=== PATIENT | female | born 2000 | race Caucasian/White ===

== ENCOUNTER 2022-02-25 15:30 | Outpatient (CLI) | payer BC, SELFPAY ==
--- OUTSIDE RECORDS SUMMARY | 2022-02-25 15:34 | XMS_ITS | Clinical Summary ---
:2000 Author Organization [facility] Address [place] [address] Care Team Providers Name Role Phone Qian Monique MD Primary Care Provider [phone] Allergies Active Allergy Reactions Severity Noted Date Comments [place] Oil 04/01/2010 Medications Medication Sig Dispensed Refills Start Date End Date Status EPINEPHrine Inject 0.3 mg 2 Each 2 02/19/2022 Act jes (EPIPEN) 0.3 intramuscular. mg/0.3 mL Use as auto-injectorIndi directed cations: Food allergy EPINEPHrine Inject 0.3 mg 2 Each 2 01/03/2018 Dis continued (EPIPEN) 0.3 intramuscular. 2 (R eorder mg/0.3 mL Use as (E-cancel not injectionIndicati directed se nt)) ons: Food allergy meloxicam (MOBIC) Take 1 tablet 30 Tablet 0 11/28/2021 02 Discontinued 7.5 mg (with food) as 2 (*Pat ient states tabletIndications needed for n o longer : Contusion of pain. Maximum t aking/Not on right hip, dose per day: sendi ng facility initial 2 doses. Ok to list) encounter, Acute alternate with buttock pain, tylenol. Injury of right hip, initial encounter Hospital, Clinic, or Other Ordered Dose Route Frequency Start Date End Date Status Facility Administered Medication etonogestrel subdermal 1 Each Sdrm Q 3 YEARS 09/25/2020 Active implant (NEXPLANON) 1 EachIndications: Encounter for removal and reinsertion of Nexplanon Active Problems Problem Noted Date Body mass index (BMI) 40.0-44.9, adult 04/13/[address] 06/15/2018 Overview: Left arm placed 06/14/18 Acne vulgaris 08/18/2011 Adverse food reaction 12/01/2010 Encounters Date Type Specialty Care Team Description 02/19/2022 Office Visit Qian Monique Form (Facebook); MD Yue Contraception (Remove/replace nexplanon, nexplanon will while in [place]. ); Physical; Ginger hidalgo (Going to [facility] with the [facility]) 02/19/2022 Travel 11/28/2021 Ancillary Procedure 11/28/2021 Office Visit Louis Fallon, Pain (Some hip and lower MD back pain. Had an injury about 2 weeks a go while tubing and had hit her right side on a rock./Using Ibu profen for pain management ) 11/28/2021 Travel from Last 3 Months Immunizations Name Administration Dates Next Due AMB Influenza, IIV4 PF (=>6 mos 01/09/2016 Flulaval,Fluzone Fluarix)(Flu Clinic Only) DTaP 09/08/2005, 03/13/2002, 03/29/2001, 01/10/2001, 2000 HIB-HepB (Comvax) 09/19/2001, 01/10/2001, 2000 Hepatitis A (Peds) 08/18/2011, 2009 Human Papilloma Virus Vaccine 04/13/2013, 12/12/2012, 2012 Inactivated Polio Vaccine 09/08/2005, 03/14/2002, 03/13/2002 , 03/29/2001, 01/12/2001 Influenza, IIV4 12/25/2021, 11/22/2019, 04/07/2019, 01/03/2018 MMR 09/08/2005, 12/12/2001 Meningococcal Vaccine (Menveo) 09/29/2016, 10/10/2012 Pneumococcal conj 7-Valent (Prevnar 7) 12/12/2001, 2, 03/29/2001, 2000 Tdap 02/19/2022, 10/10/2012 Typhoid (injectable) 02/19/2022 Varicella Vaccine 2009, 09/19/2001 Yellow Fever 02/19/2022 Family History Medical History Relation Name Comments Good Health Brother Good Health Father Good Health Mother Good Health Sister Relation Name Status Comments Brother Father Mother Sister Social History Tobacco Use Types Packs/Day Years Used Date Smoking Tobacco: Never Smokeless Tobacco: Never Tobacco Cessation: Counseling Given: Yes Alcohol Use Standard Drinks/Week Comments Not Currently 0 (1 standard drink = 0.6 oz pure alcoho l) occasionally Alcohol Habits Answer Date Recorded How often do you have a drink containing alcohol? Never 04/07/2019 How many drinks containing alcohol do you have on a 1 or 2 04/07/2019 typical day when you are drinking? How often do you have six or more drinks on one Less than mo nthly 04/07/2019 occasion? Sex Assigned at Date Recorded Not on file COVID-19 Exposure Response Date Recorded In the last 10 days, have you been in contact with No / Unsu re 02/19/2022 9:26 AM PROCESSING INSPECTOR someone who was confirmed or suspected to have Coronavirus/COVID-19? Obstetrics History Para Term AB IAB SAB Ectopic Multiple Living Live Births 0 0 0 0 0 0 0 0 0 0 0 Last Filed Vital Signs Vital Sign Reading Time Taken Comments Blood Pressure 116/79 02/19/2022 9:39 AM PROCESSING INSPECTOR Pulse 88 02/19/2022 9:39 AM PROCESSING INSPECTOR Temperature 38 ??C (100.4 ??F) 10/21/2019 11:41 AM CDT Respiratory Rate 18 11/28/2021 11:01 AM CDT Oxygen Saturation 95% 02/19/2022 9:39 AM PROCESSING INSPECTOR Inhaled Oxygen Concentration - - Weight 120.1 kg (264 lb 12.8 oz) 02/19/2022 9:39 AM PROCESSING INSPECTOR Height 165.1 cm (5' 5) 02/19/2022 9:39 AM PROCESSING INSPECTOR Body Mass Index 44.07 02/19/2022 9:39 AM PROCESSING INSPECTOR Plan of Treatment Health Maintenance Due Date Last Done Comments Chlamydia for age 16-24 01/26/2020 01/25/2019 (Completed ou dhara of Cerephexian), 01/03/2018 Pap test for age 21-65 09/07/2021 BMI (ht and wt on same day) for 02/19/2023 02/19/2022, 09/12, age 18+ 11/22/2019, Additional history exists Depression screening for age 12+ 02/19/2023 02/19/2022, , 04/07/2019, Additional history exists Tetanus booster 02/20/2032 02/19/2022, 10/10/2012 HPV series for age 9-26 Completed 04/13/2013, 12/12/2012, 12/12/2012, Additional history exists Meningococcal series for age 11-21 Completed 09/29/2016, 0 10/10/2012 COVID-19 vaccine series Completed 12/25/2021, 07/16/2020, 06/25/2020 Influenza for age 9-49 Completed 12/25/2021, 11/22/2019, 04/07/2019, Additional history exists HIV for age 15-65 Completed 02/19/2022 Hepatitis C screening for age Completed 02/19/2022 18-79 Tdap Completed 02/19/2022, 10/10/2012 Procedures Procedure Name Priority Date/Time Associated Diagnosis Comme nts QFT MITOGEN Routine 02/19/2022 11:10 Screening examination Re sults for this PERFORMABLE AM PROCESSING INSPECTOR for pulmonary procedure are in tuberculosis the results section. QFT TB2 PERFORMABLE Routine 02/19/2022 11:10 Screening examina tion Results for this AM PROCESSING INSPECTOR for pulmonary procedure are in tuberculosis the results section. QFT TB1 PERFORMABLE Routine 02/19/2022 11:10 Screening examina tion Results for this AM PROCESSING INSPECTOR for pulmonary procedure are in tuberculosis the results section. QUANTIFERON TB GOLD Routine 02/19/2022 11:10 Screening examina tion Results for this PLUS AM PROCESSING INSPECTOR for pulmonary procedure are in tuberculosis the results section. CBC WITH AUTO Routine 02/19/2022 11:10 Routine general medical Results for this DIFFERENTIAL AM PROCESSING INSPECTOR [facility] are in care facility the results section. QUANTIFERON TB GOLD Routine 02/19/2022 11:10 Screening examina tion Results for this PLUS AM PROCESSING INSPECTOR for pulmonary procedure are in tuberculosis the results section. HEMOGLOBIN A1C Routine 02/19/2022 11:10 Routine general medica l Results for this AM PROCESSING INSPECTOR examination at [facility] hospital are in care facility the results section. LIPID PANEL Routine 02/19/2022 11:10 Routine general medical Results for this AM PROCESSING INSPECTOR examination at [facility] hospital are in care facility the results section. TSH WITH REFLEX Routine 02/19/2022 11:10 Routine general medic al Results for this AM PROCESSING INSPECTOR examination at [facility] are in care facility the results section. GLUCOSE 6-PHOSPHATE Routine 02/19/2022 11:10 Routine general m edical Results for this DEHYDROGENASE G6PD AM PROCESSING INSPECTOR examination at [facility] are in QUANT BLD care facility the results section. COMP METABOLIC PANEL Routine 02/19/2022 11:10 Routine general medical Results for this AM PROCESSING INSPECTOR examination at our community hospital are in care facility the results section. TREPONEMA PALLIDUM Routine 02/19/2022 11:10 Routine screening for Results for this AM PROCESSING INSPECTOR STI (sexually procedure are in transmitted infection) the r esults section. ANTI HCV Routine 02/19/2022 11:10 Routine screening for Re sults for this AM PROCESSING INSPECTOR STI (sexually procedure are in transmitted infection) the r esults section. HBSAG (HBS) Routine 02/19/2022 11:10 Routine screening for Re sults for this AM PROCESSING INSPECTOR STI (sexually procedure are in transmitted infection) the r esults section. ANTI HBS QUANT AHS Routine 02/19/2022 11:10 Routine screening for Results for this AM PROCESSING INSPECTOR STI (sexually procedure are in transmitted infection) the r esults section. CBC WITH AUTO Routine 02/19/2022 11:10 Routine general medical Results for this DIFFERENTIAL AM PROCESSING INSPECTOR examination at [facility] hospital are in care facility the results section. ANTI HIV 1/2 Routine 02/19/2022 11:10 Screening for HIV Result s for this AM PROCESSING INSPECTOR (human immunodeficiency proc edure are in virus) the results section. XR HIP 1 VIEW W STAT 11/28/2021 11:38 Contusion of right hi p, Results for this PELVIS RIGHT AM CDT initial encounte r procedure are in Injury of right hip, the res ults initial encounter section. from Last 3 Months Results QFT MITOGEN PERFORMABLE (02/19/2022 11:10 AM PROCESSING INSPECTOR) P athologist Signature MITOGEN 10.00 IU/mL 02/21/2022 [facility] 11:38 AM PROCESSING INSPECTOR LABORATORY-CENTR AL LABORATORY Specimen Anatomical Collection Method / Collection Time Recei christianne Time (Source) Location / Volume Laterality Blood BLOOD SPECIMEN / Venipuncture / 02/19/2022 11:10 02/19 Unknown Unknown AM PROCESSING INSPECTOR 11:13 AM PROCESSING INSPECTOR Qian Monique MD CHEMISTRY Performing Organization Address City/[facility]/ZIP Code Phon e Number [facility] [address] [place] [address] LABORATORY-CENTRAL 2000 LABORATORY QFT TB2 PERFORMABLE (02/19/2022 11:10 AM PROCESSING INSPECTOR) P athologist Signature TB2 0.01 IU/mL 02/21/2022 [facility] 11:38 AM PROCESSING INSPECTOR LABORATORY-CENTR AL LABORATORY Specimen Anatomical Collection Method / Collection Time Recei christianne Time (Source) Location / Volume Laterality Blood BLOOD SPECIMEN / Venipuncture / 02/19/2022 11:10 02/19 Unknown Unknown AM PROCESSING INSPECTOR 11:13 AM PROCESSING INSPECTOR Qian Monique MD CHEMISTRY Performing Organization Address City/[facility]/ZIP Code Phon e Number [facility] [address] [place] [address] LABORATORY-CENTRAL 2000 LABORATORY QFT TB1 PERFORMABLE (02/19/2022 11:10 AM PROCESSING INSPECTOR) P athologist Signature TB1 0.01 IU/mL 02/21/2022 [facility] 11:50 AM PROCESSING INSPECTOR LABORATORY-CENTR AL LABORATORY Specimen Anatomical Collection Method / Collection Time Recei christianne Time (Source) Location / Volume Laterality Blood BLOOD SPECIMEN / Venipuncture / 02/19/2022 11:10 02/19 Unknown Unknown AM PROCESSING INSPECTOR 11:13 AM PROCESSING INSPECTOR Qian Monique MD CHEMISTRY Performing Organization Address City/State/ZIP Code Phon e Number [facility] [address] [place] [address] LABORATORY-CENTRAL 2000 LABORATORY QUANTIFERON TB GOLD PLUS (02/19/2022 11:10 AM PROCESSING INSPECTOR) [facility] Method Time Signature QFTP NIL 0.01 02/21/2022 [facility] 3:09 PM PROCESSING INSPECTOR LABORATORY-CE NTRAL LABORATORY TB1 0.01 IU/mL 02/21/2022 [facility] 3:09 PM PROCESSING INSPECTOR LABORATORY-CE NTRAL LABORATORY TB2 0.01 IU/mL 02/21/2022 [facility] 3:09 PM PROCESSING INSPECTOR LABORATORY-CE NTRAL LABORATORY MITOGEN 10.00 IU/mL 02/21/2022 [facility] 3:09 PM PROCESSING INSPECTOR LABORATORY-CE NTRAL LABORATORY QFTP TB AG1 - NIL 0.00 02/21/2022 [facility] 3:09 PM PROCESSING INSPECTOR LABORATORY-CE NTRAL LABORATORY TB1-NIL % OF NIL 0 % 02/21/2022 [facility] 3:09 PM PROCESSING INSPECTOR LABORATORY-CE NTRAL LABORATORY QFTP TB AG2 - NIL 0.00 02/21/2022 [facility] 3:09 PM PROCESSING INSPECTOR LABORATORY-CE NTRAL LABORATORY TB2-NIL % OF NIL 0 % 02/21/2022 [facility] 3:09 PM PROCESSING INSPECTOR LABORATORY-CE NTRAL LABORATORY QFTP MITOGEN - NIL 9.99 02/21/2022 [facility] 3:09 PM PROCESSING INSPECTOR LABORATORY-CE NTRAL LABORATORY QFTP QUANTIFERON Negative Negative 02/21/2022 [facility] 3:09 PM PROCESSING INSPECTOR LABORATORY-CE NTRAL LABORATORY Specimen Anatomical Collection Method / Collection Time Recei christianne Time (Source) Location / Volume Laterality Blood BLOOD SPECIMEN / Venipuncture / 02/19/2022 11:10 02/19 Unknown Unknown AM PROCESSING INSPECTOR 11:13 AM PROCESSING INSPECTOR Narrative [facility] LABORATORY-CENTRAL LABORAT ORY - 02/21/2022 3:09 PM PROCESSING INSPECTOR M. tuberculosis infection not likely, but cannot be excluded in cases of immunosuppression. CAUTION: The performance of QuantiFERON- TB Gold Plus has not been evaluated in specimens from: - Individuals with impaired or altered i mmune factors (HIV infections, transplant patients, those receieving immunosuppressive drugs such as corticosteroids) and those with other clinical conditions (e.g., diabetes, hematological disorders). - Individuals younger than 17 years old. ??Refer to CDC website for testing recommendations in children 6-17 years old. - women Qian Monique MD CHEMISTRY Performing Organization Address City/State/ZIP Code Phon e Number [facility] [address] [place] [address] LABORATORY-CENTRAL 2000 LABORATORY GLUCOSE 6-PHOSPHATE DEHYDROGENASE G6PD QUANT BLD (02/19/2022 11:10 AM PROCESSING INSPECTOR) athologist Signature RBC 4.53 3.77 - 5.28 02/24/2022 [facility] x10E6/uL 1:08 PM [facility] ES[facility] TEST[facility] (CET) G6PD Qn 233 155 - 399 02/24/2022 [facility] U/10E12 RBC 1:08 PM PROCESSING INSPECTOR [facility] ESOTERIC TESTING ([facility]) Comment: When decreased, G-6-PD, Quant. values ar e associated with acute hemolytic anemia when deficient individu als are exposed to oxidative stress, such as with certain medications (e.g., primaquine), infection, or ingestion of suresh beans. Caution: In patients with acute hemolysi s (e.g., abnormally low RBC values), testing for G-6-PD may be false ly normal because older erythrocytes with a higher enzyme defici ency have been hemolyzed. Young erythrocytes and reticulocytes hav e normal or near-normal enzyme activity. Normal values of G-6-PD may be measured for several weeks following a hemolytic event. Specimen Anatomical Collection Method / Collection Time Recei christianne Time (Source) Location / Volume Laterality Blood BLOOD SPECIMEN / Venipuncture / 02/19/2022 11:10 02/19 Unknown Unknown AM PROCESSING INSPECTOR 11:13 AM PROCESSING INSPECTOR Narrative [facility] ESOTERIC TESTING ([facility]) - 02/24/2022 1:08 PM PROCESSING INSPECTOR Performed at: ??01 - [address] ??[id number] House Servant: James Wills MD, Phone: ?? [phone] Performed at: ??02 - [address] ??[id number] House Servant: Taylor Galdamez MD, Phone: ??[phone] Qian Monique MD SEND OUTS Performing Organization Address City/State/ZIP Code Phon e Number [facility] [address] [place] [phone] ESOTERIC TESTING (CET) CBC WITH AUTO DIFFERENTIAL (02/19/2022 11:10 AM PROCESSING INSPECTOR) P athologist Signature WHITE BLOOD 9.3 4.5 - 11.0 02/19/2022 [facility] COUNT thou/cu mm 11:31 AM [facility] RED BLOOD COUNT 4.50 4.00 - 02/19/2022 [facility] 5.20 11:[address] [facility] mil/cu mm CLINIC HEMOGLOBIN 13.8 12.0 - 02/19/2022 [facility] 16.0 g/dL 11:31 AM [facility] HEMATOCRIT 41.0 33.0 - 02/19/2022 [facility] 51.0 % 11:31 AM [facility] MCV 91 80 - 100 02/19/2022 [facility] fL 11:31 AM [facility] MCH 30.7 26.0 - 02/19/2022 [facility] 34.0 pg 11:31 AM [facility] MCHC 33.7 32.0 - 02/19/2022 [facility] 36.0 g/dL 11:31 AM [facility] RDW 13.1 11.5 - 02/19/2022 [facility] 15.5 % 11:31 AM [facility] PLATELET COUNT 274 140 - 440 02/19/2022 [facility] thou/cu mm 11:31 AM [facility] MPV 10.1 6.5 - 11.0 02/19/2022 [facility] fL 11:31 AM [facility] % NEUT 66.4 % 02/19/2022 [facility] 11:31 AM [facility] % LYMPH 23.1 % 02/19/2022 [facility] 11:31 AM [facility] % MONO 8.9 % 02/19/2022 [facility] 11:31 AM [facility] % EOS 1.3 % 02/19/2022 [facility] 11:31 AM [facility] % BASO 0.3 % 02/19/2022 [facility] 11:31 AM [facility] ABSOLUTE 6.2 1.7 - 7.0 02/19/2022 [facility] NEUTROPHILS thou/cu mm 11:31 AM [facility] ABSOLUTE 2.2 0.9 - 2.9 02/19/2022 [facility] LYMPHOCYTES thou/cu mm 11:31 AM [facility] ABSOLUTE 0.8 <0.9 02/19/2022 [facility] MONOCYTES thou/cu mm 11:31 AM PROCESSING INSPECTOR [facility] ABSOLUTE 0.1 <0.5 02/19/2022 [facility] EOSINOPHILS thou/cu mm 11:31 AM PROCESSING INSPECTOR [facility] ABSOLUTE 0.0 <0.3 02/19/2022 [facility] BASOPHILS thou/cu mm 11:31 AM PROCESSING INSPECTOR [facility] Specimen Anatomical Collection Method / Collection Time Recei christianne Time (Source) Location / Volume Laterality Blood BLOOD SPECIMEN / Venipuncture / 02/19/2022 11:10 02/19 Unknown Unknown AM PROCESSING INSPECTOR 11:13 AM PROCESSING INSPECTOR Qian Monique MD HEMATOLOGY Performing Organization Address City/State/ZIP Code Phon e Number [facility] [address] [place], [place] [id number] TSH WITH REFLEX (02/19/2022 11:10 AM PROCESSING INSPECTOR) P athologist Signature TSH 3.34 0.35 - 4.94 02/22/2022 [facility] uIU/mL 2:02 AM PROCESSING INSPECTOR LABORATORY Specimen Anatomical Collection Method / Collection Time Recei christianne Time (Source) Location / Volume Laterality Blood BLOOD SPECIMEN / Venipuncture / 02/19/2022 11:10 02/19 Unknown Unknown AM PROCESSING INSPECTOR 11:12 AM PROCESSING INSPECTOR Narrative [facility] LABORATORY - 02/22/2022 2:02 AM PROCESSING INSPECTOR In Adults, TSH values between 5.00 and 10.00 uIU/ml do not necessarily indicate the presence of Hyp othyroidism. Correlation with clinical findings such as presence of goiter and/or Thyroperoxidase (TPO) Antibody ma y be helpful. For more information please refer to KIAN 20 04; [phone]: [phone]. Qian Monique MD CHEMISTRY Performing Organization Address City/State/ZIP Code Phon e Number [facility] LABORATORY SENDOUT INTERNAL ZIP [place], [place] [id number] [place] [address] TREPONEMA PALLIDUM (02/19/2022 11:10 AM PROCESSING INSPECTOR) Analysis Performed At Patho logist Time Signature TREPONEMA Negative Negative 02/20/2022 [facility] PALLIDUM 8:57 AM PROCESSING INSPECTOR LABORATORY-MARIN TRAL LABORATORY Specimen Anatomical Collection Method / Collection Time Recei christianne Time (Source) Location / Volume Laterality Blood BLOOD SPECIMEN / Venipuncture / 02/19/2022 11:10 02/19 Unknown Unknown AM PROCESSING INSPECTOR 11:12 AM PROCESSING INSPECTOR Qian Monique MD SEND OUTS Performing Organization Address City/[facility]/ZIP Code Phon e Number [facility] [address] [place] [address] LABORATORY-CENTRAL 2000 LABORATORY HBSAG (HBS) (02/19/2022 11:10 AM PROCESSING INSPECTOR) [facility] Method Time Signature HBSAG Nonreactive Nonreactive 02/22/2022 [facility] 12:[facility] AM PROCESSING INSPECTOR LABORATORY-[facility] TRAL LABORATORY Specimen Anatomical Collection Method / Collection Time Recei christianne Time (Source) Location / Volume Laterality Blood BLOOD SPECIMEN / Venipuncture / 02/19/2022 11:10 02/19 Unknown Unknown AM PROCESSING INSPECTOR 11:12 AM PROCESSING INSPECTOR Qian Monique MD SEND OUTS Performing Organization Address [facility] Phon e Number [facility] [address] [facility] [place] [address] LABORATORY-CENTRAL 2000 LABORATORY ANTI HCV (02/19/2022 11:10 AM PROCESSING INSPECTOR) [facility] Method Time Signature HEPATITIS C Non-Reacti Non-Reacti 02/22/2022 [facility] ANTIBODY ve ve 2:18 AM PROCESSING INSPECTOR LABORATORY-[facility] TR[facility] LABORATORY Comment: Antibodies to HCV not detected; does not exclude the possibility of exposure to HCV. Specimen Anatomical Collection Method / Collection Time Recei christianne Time (Source) Location / Volume Laterality Blood BLOOD SPECIMEN / Venipuncture / 02/19/2022 11:10 02/19 Unknown Unknown AM PROCESSING INSPECTOR 11:12 AM PROCESSING INSPECTOR Qian Monique MD SEND OUTS Performing Organization Address [facility]/ZIP [facility] [place] Phon e Number [facility] [address] [place] [address] LABORATORY-CENTRAL 2000 LABORATORY (ABNORMAL) ANTI HBS QUANT AHS (02/19/2022 11:10 AM PROCESSING INSPECTOR) Analysis Performed At [facility] Time Signature ANTI HBS QUANT 1.30 (L) >=12.00 02/22/2022 [facility] mIU/mL 12:19 AM PROCESSING INSPECTOR LABORATORY-[facility] TRAL LABORATORY Comment: Considered not immune to HBV in fection. Specimen Anatomical Collection Method / Collection Time Recei christianne Time (Source) Location / Volume Laterality Blood BLOOD SPECIMEN / Venipuncture / 02/19/2022 11:10 02/19 Unknown Unknown AM PROCESSING INSPECTOR 11:12 AM PROCESSING INSPECTOR Qian Monique MD SEND OUTS Performing Organization Address City/[facility]/ZIP Code Phon e Number [facility] [address] [place] [address] LABORATORY-CENTRAL 2000 LABORATORY ANTI HIV 1/2 (02/19/2022 11:10 AM PROCESSING INSPECTOR) [facility] Method Time Signature HIV-1/HIV-2 Non-Reacti Non-Reacti 02/22/2022 [facility] ANTIBODY ve ve 12:19 AM PROCESSING INSPECTOR LABORATORY-[facility] TRAL LABORATORY Comment: HIV-1 p24 and HIV-1/HIV-2 Ab no t detected. Specimen Anatomical Collection Method / Collection Time Recei christianne Time (Source) Location / Volume Laterality Blood BLOOD SPECIMEN / Venipuncture / 02/19/2022 11:10 02/19 Unknown Unknown AM PROCESSING INSPECTOR 11:12 AM PROCESSING INSPECTOR Qian Monique MD SEND OUTS Performing Organization Address City/[facility]/ZIP [facility] [place] Phon e Number [facility] [address] [facility] [place] [address] LABORATORY-CENTRAL 2000 LABORATORY HEMOGLOBIN A1C MONITORING (POCT) (02/19/2022 11:10 AM PROCESSING INSPECTOR) P athologist Signature HEMOGLOBIN A1C 5.3 <=6.4 % 02/19/2022 [facility] MONITORING 11:27 AM PROCESSING INSPECTOR MARANA (POCT) [facility] Specimen Anatomical Collection Method / Collection Time Recei christianne Time (Source) Location / Volume Laterality Blood BLOOD SPECIMEN / Venipuncture / 02/19/2022 11:10 02/19 Unknown Unknown AM PROCESSING INSPECTOR 11:13 AM PROCESSING INSPECTOR [facility] - 2021 11:27 AM PROCESSING INSPECTOR ? (<=6.9%) ? Indicates good control ? (7.0% to 7.9%) ? Indicates fa ir control ? (>=8.0%) ? Indicates poor control ?? NOTE: ??These thresholds are guideli doni and ?individual targets may va ry. Falsely low levels may be seen with: Recent Transfusion, Recent Significant B lood Loss, Hemolytic Diseases, or Falsely elevated levels may be seen with : Untreated Anemias, Splenectomy ? Qian Monique MD CHEMISTRY Performing Organization Address City/State/ZIP Code Phon e Number [facility] [address] [place] [address] (ABNORMAL) LIPID PANEL (02/19/2022 11:10 AM PROCESSING INSPECTOR) [facility] Method Time Signature CHOLESTEROL,TOTAL 195 100 - 199 02/22/2022 [facility] mg/dL 1:57 AM [facility] TRIGLYCERIDES 102 <150 02/22/2022 [facility] mg/dL 1:57 AM [facility] HDL CHOLESTEROL 36 (L) >40 mg/dL 02/22/2022 [facility] 1:57 AM [facility] NON-HDL 159 (H) <145 02/22/2022 [facility] CHOLESTEROL mg/dl 1:57 AM [facility] CHOL/HDL RATIO 5.42 (H) <4.50 02/22/2022 [facility] 1:57 AM [facility] LDL CHOLESTEROL 139 (H) <=130 02/22/2022 [facility] mg/dL 1:57 AM [facility] VLDL CHOLESTEROL 20 <=30 02/22/2022 [facility] mg/dL 1:57 AM [facility] PROVIDER ORDERED RANDOM 02/22/2022 CAIT BEE H STATUS 1:57 AM [facility] Specimen Anatomical Collection Method / Collection Time Recei christianne Time (Source) Location / Volume Laterality Blood BLOOD SPECIMEN / Venipuncture / 02/19/2022 11:10 02/19 Unknown Unknown AM PROCESSING INSPECTOR 11:12 AM PROCESSING INSPECTOR Qian Monique MD CHEMISTRY Performing Organization Address City/State/ZIP Code Phon e Number [facility] [place] [id number] [facility] [address] [place] [address], LABORATORY-CENTRAL [address] LABORATORY (ABNORMAL) COMP METABOLIC PANEL (02/19/2022 11:10 AM [facility]) [facility] Method Time Signature SODIUM 139 135 - 145 02/22/2022 [facility] mmol/L 1:57 AM [facility] POTASSIUM 4.3 3.5 - 5.0 02/22/2022 [facility] mmol/L 1:57 AM [facility] CHLORIDE 107 98 - 110 02/22/2022 [facility] mmol/L 1:57 AM [facility] CO2,TOTAL 25 21 - 31 02/22/2022 [facility] mmol/L 1:57 AM [facility] ANION GAP 7 5 - 18 02/22/2022 [facility] 1:57 AM [facility] GLUCOSE 114 (H) 65 - 100 02/22/2022 [facility] mg/dL 1:57 AM [facility] CALCIUM 9.3 8.5 - 10.5 02/22/2022 [facility] mg/dL 1:57 AM [facility] BUN 14 8 - 25 02/22/2022 [facility] mg/dL 1:57 AM [facility] CREATININE 0.77 0.57 - 02/22/2022 [facility] 1.11 mg/dL 1:57 AM [facility] BUN/CREAT RATIO 18 10 - 20 02/22/2022 [facility] 1:57 AM [facility] ALBUMIN 4.3 3.5 - 5.2 02/22/2022 [facility] g/dL 1:57 AM [facility] PROTEIN,TOTAL 7.4 6.0 - 8.0 02/22/2022 [facility] g/dL 1:57 AM [facility] GLOBULIN 3.1 2.0 - 3.7 02/22/2022 [facility] g/dL 1:57 AM [facility] A/G RATIO 1.4 1.0 - 2.0 02/22/2022 [facility] 1:57 AM [facility] BILIRUBIN,TOTAL 0.6 0.2 - 1.2 02/22/2022 [facility] mg/dL 1:57 AM [facility] ALK PHOSPHATASE 98 50 - 136 02/22/2022 [facility] IU/L 1:57 AM [facility] ALT (SGPT) 27 8 - 45 02/22/2022 [facility] IU/L 1:57 AM [facility] AST (SGOT) 23 2 - 40 02/22/2022 [facility] IU/L 1:57 AM [facility] eGFR >90 >90 02/22/2022 [facility] mL/min/1.7 1:57 AM [facility] 3m2 LABORATORY Comment: As of 2021, eGFR is calcu lated by the CKD-EPI creatinine equation without race adjustment. eGFR can be inf luenced by muscle mass, exercise, and diet. The reported eGFR is an estimation only and is only applicable if the renal function is stable. Specimen Anatomical Collection Method / Collection Time Recei christianne Time (Source) Location / Volume Laterality Blood BLOOD SPECIMEN / Venipuncture / 02/19/2022 11:10 02/19 Unknown Unknown AM PROCESSING INSPECTOR 11:12 AM PROCESSING INSPECTOR Qian Monique MD CHEMISTRY Performing Organization Address City/State/ZIP Code Phon e Number [facility] SENDOUT INTERNAL ZIP [place] [id number] [id number] [place] [address] XR HIP 1 VIEW W PELVIS RIGHT (11/28/2021 11:38 AM CDT) Anatomical Region Laterality Modality HIPS, HIPR, Pelvis Computed Radiography Specimen (Source) Anatomical Collection Method Collection Time Re ceived Time Location / / Volume Laterality 11/28/2021 11:41 AM CDT Impressions 11/28/2021 11:41 AM CDT Negative study. Dictated by Hugh Mao MD @ 11/28/2021 11:41 :30 AM (Electronically Signed) Narrative 11/28/2021 11:41 AM CDT For Patients: ??As a result of the Cures Act, medical imaging exams and procedure report s are released immediately into [facility]. ??You may view this report before your referring provider. ??If you have questions, please contact your health care provider. INDICATION: Right hip contusion. TECHNIQUE: AP pelvis and lateral right hip. FINDINGS: No acute fracture or dislocation. Normal joint spacing. No arthropathy or bone destruction. Pelvis left hip are normal. Soft tissues are unremarkable. Procedure Note Eben Mao MD - 11/28/2021F ormatting of this note might be different from the original. For Patients: As a result of the Cures Act, medical imaging exams and procedure reports are released immediately into your electronic medical record. You may view this report before your referring provider. If you have questions, please contact [facility] health care provider. INDICATION: Right hip contusion. TECHNIQUE: AP pelvis and lateral right hip. FINDINGS: No acute fracture or dislocation. Normal joint spacing. No arthropathy or bone destruction. Pelvis left hip are normal. Soft tissues are unremarkable. IMPRESSION: Negative study. Dictated by Hugh Mao MD @ 11/28/2021 11:41 :30 AM (Electronically Signed) Louis Fallon MD GENERAL IMAGING from Last 3 Months Insurance Payer Benefit Plan / Subscriber ID Effective Dates Phone Addre ss Type Group BLUE [employer]OSS [employer] OF [id number] 2016-Present [address] [place] [address] Care Teams Safety Equipment Tester Relationship Specialty Start Date End Date Qian Monique MD PCP - General Pediatric 12/11/11 [address] [place] [address]
[2022-02-25 18:54] LABS: Chlamydia DNA Amplified* NOT DETECTED (No Detected); GC DNA Amplified* NOT DETECTED (No Detected)
== END 2022-02-25 15:31 | disposition home or self-care (01) ==
PROVIDERS: Visit Provider Registered Nurse
DX: Z01.419 Encounter for gynecological examination (general) (routine) without abnormal findings (principal); Z11.3 Encounter for screening for infections with a predominantly sexual mode of transmission
CPT/HCPCS: 87491; 87591